=== PATIENT | female | born 1965 | race Caucasian/White ===

== ENCOUNTER 2024-07-10 10:46 | Outpatient (AMB) | payer BC, SELFPAY ==
--- NOTE | 2024-07-10 10:47 | A.OFFVIS_ITS ---
Vital Signs 3 07/10/24 10:49 Height 5 ft 4.96 in Weight 134 lb 8 oz BMI 22.4 BP 142/76 H Blood Pressure Location Rt brachial Position Sitting Pulse 96 Pulse Source Pulse Oximeter Pulse Oximetry (%) 99 Oxygen Delivery Method Room Air Intake Visit Reasons: Bronchiectasis Allergies No Known Allergies Allergy (Verified 07/10/24 10:51) HPI HPI Bronchiectasis: Details: Eusebia is a pleasant 59 year old female, former minimal smoker with less than 5pyh with no significant past medical history. She was referred by PCP for pulmonary evaluation. She reports having COVID last fall and most recently diagnosed on 06/05 with multifocal pneumonia treated with Augmentin x 10 days and azithromycin x 5 days. During this time she denied any symptoms other than hemoptypsis. She noted bright red blood with clots, approximately 2 tsp. After completing antibiotics, her symptoms worsened with fever and fatigue. She also continued with minimal productive cough now intermittently streaked with blood, mid to left sided pleuritic burning with inspiration and wheezing. She was prescribed prednisone with minimal change. She was also sent for chest CT with contrast on 06/29 which was suggestive of MAC vs bronchiolitis. She denies recurrent URI. She reports diagnosis of allergy induced asthma in the past. She reports mild seasonal allergies. She reports father had a pulmonary infection that was difficult to treat, does not know exact diagnosis. [facility] Social History (Updated 07/10/24 @ 10:51 by Seema Guo [facility]) Patient Tobacco Use Status: Former Tobacco user Review of Systems Const Denies chills, Denies excessive sweating, Reports fatigue, Denies fever(s), Denies headache(s) and Denies night sweats Eyes Denies dry eyes, Denies irritation and Denies itchy eyes ENT Reports Normal hearing present, Denies headache(s), Denies nasal congestion, Denies nasal discharge, Denies post nasal drip and Denies sore throat Card Denies chest pain, Denies chest pain at rest, Denies chest pain with activity, Denies claudication, Denies leg edema, Denies dyspnea, Denies dyspnea on exertion, Denies orthopnea and Denies paroxysmal nocturnal dyspnea Resp Details: mid to left sided pleuritic burning with inspiration Denies chest congestion, Denies excessive phlegm production, Denies dyspnea, Denies dyspnea on exertion, Denies stridor and Reports wheezing Musc Denies myalgias Neuro Reports Normal hearing present and Denies headache(s) Endo Denies excessive sweating and Reports fatigue Shawn/Lymph Denies lymphadenopathy Aller/Immun Denies itchy eyes, Denies seasonal rhinorrhea and Reports wheezing Physical Exam Vital Signs: Last Vital Signs Pulse 96 07/10/24 10:49 BP 142/76 H 07/10/24 10:49 Pulse Ox 99 07/10/24 10:49 Oxygen Delivery Method Room Air 07/10/24 10:49 BMI result Body Mass Index 22.4 Const General: cooperative, healthy appearing, comfortable, no acute distress, well developed and alert Orientation/consciousness: patient oriented x3 Limitations: no limitations HEENT Head: Yes normal to inspection, Yes normocephalic and Yes atraumatic Ears: hearing grossly normal bilaterally and external ears normal Eyes General: appearance normal, both eyes and all related structures Eyelids: Yes eyelids normal Sclerae: sclerae normal EOM: EOMs intact bilaterally Neck Neck: Yes normal visual inspection and Yes no lymphadenopathy Lymphatic: no lymphadenopathy noted Chest Chest palpation & inspection: normal inspection of the chest Resp Effort & Inspection: normal respiratory effort, able to speak in complete sentences, no audible wheezes, no cough, no stridor, not tachypneic, no tripod positioning and no use of accessory muscles Auscultation: clear to auscultation bilaterally Cardio Jugular venous distension: no JVD Rate: regular rate Rhythm: regular rhythm Skin Other: warm, dry General skin exam: no rashes or lesions noted Neuro General: patient oriented x3 Cranial nerves: Yes Normal hearing present Cognition (Neuro): normal cognition Gait exam (Neuro): Normal gait present Extrem General: Yes normal to inspection, Yes capillary refill normal, Yes no clubbing, cyanosis or edema and Yes no pedal edema Psych Appearance: grossly normal and well kempt Speech and movement: Normal speech and movement present and Clear speech present Affect: normal affect Attitude: cooperative Thought process: Normal thought process present Thought content: Normal thought content present Insight: Good insight present (Psych) Judgement: Good judgement present (Psych) Results Reviewed Results Reviewed: Assessment & Plan Assessment & Plan (1) Hemoptysis: Code(s): R04.2 - Hemoptysis Category: Medical (2) Bronchiectasis: Code(s): J47.9 - Bronchiectasis, uncomplicated Category: Medical (3) History of recent pneumonia: Code(s): Z87.01 - Personal history of pneumonia (recurrent) Category: Medical Plan Eusebia presents for pulmonary evaluation after recent multifocal pneumonia. Despite antibiotics she continues with intermittent wheezing, productive cough now occasionally blood streaked, and mid to left pleuritic burning sensation. Prior CT suggestive of MAC. Will send for CTA to rule out any vascular malformations contributing to hemoptysis. Once resulted will review and if no abnormalities will likely schedule bronchoscopy, as she is unable to produce a sputum culture to assess for MAC. She is aware if she has greater than 1 tsp of hemoptypsis to seek emergent care. All questions were answered and patient is in agreement of plan. Will follow up to review results or sooner if needed. Orders: Orders 2 CT angio chest PE protocol Today R04.2 - Hemoptysis Creatinine Today Z01.818 - Encounter for other preprocedural examination Blood Urea Nitrogen Today Z01.818 - Encounter for other preprocedural examination Coding Level of Care Code New Pt Level 4 (01934) Diagnoses Hemoptysis R04.2 Bronchiectasis J47.9 History of recent pneumonia Z87.01
[2024-07-10 10:49] VITALS: BP 142/76; PULSE 96; O2SAT 99; BMI 22.4
== END 2024-07-10 11:42 | disposition home or self-care (01) ==
PROVIDERS: PCP Internal Medicine; Referring Provider Internal Medicine; Visit Provider Nurse Practitioner Family
DX: R04.2 Hemoptysis (principal); J47.9 Bronchiectasis, uncomplicated; Z87.01 Personal history of pneumonia (recurrent)
CPT/HCPCS: 99204

== ENCOUNTER → 2024-07-10 10:46 | Outpatient (BNVA) | payer BC, SELFPAY | PROVIDERS: PCP Internal Medicine; Referring Provider Internal Medicine; Visit Provider Nurse Practitioner Family ==

== ENCOUNTER 2024-07-23 13:49 | Outpatient (REF) | payer BC, SELFPAY ==
[2024-07-23 18:09] LABS: Blood Urea Nitrogen 11 mg/dL (9-16); Estimated Glomerular Filt Rate > 60
== END 2024-07-23 13:50 | disposition home or self-care (01) ==
LOC: HO.WFDLDS 13:49
PROVIDERS: Visit Provider Nurse Practitioner Family
DX: Z01.818 Encounter for other preprocedural examination (principal)
CPT/HCPCS: 36415; 82565; 84520

== ENCOUNTER 2024-07-26 14:51 | Outpatient (REF) | payer BC, SELFPAY ==
--- NOTE | ~2024-07-26 | CT_ITS ---
EXAMINATION: CT ANGIOGRAM CHEST CLINICAL INFORMATION: Hemoptysis COMPARISON: None available. TECHNIQUE: Multiple axial images were obtained through the chest after the administration of 65 mL of Omnipaque 350 intravenous contrast. Extensive vascular post-processing including two-dimensional and three-dimensional reformatted images were created and reviewed on an independent workstation. This CT examination was performed using dose optimization techniques as appropriate, variously including the following: *Automated exposure control *Adjustment of mA and/or kV according to patient size (this includes techniques or standardized protocols for targeted exams where dose is matched to indication/reason for exam; i.e. extremities or head) *Use of iterative reconstruction technique DLP: 94 mGy-cm FINDINGS: Technical Quality: There is satisfactory contrast opacification of the pulmonary arterial system. Pulmonary Arteries: The pulmonary arterial system is well opacified and patent. There is no pulmonary arterial filling defect. The main pulmonary artery is normal in caliber. The right ventricle is normal in size and morphology. Other Cardiovascular: The heart is globally normal in size. The thoracic aorta is normal in course and caliber. There is no pericardial effusion or pericardial thickening. Mediastinum/Aarti: There are no pathologically enlarged mediastinal or hilar lymph nodes. Pleura: The pleural surfaces are normal bilaterally. There is no pleural effusion. There is no pneumothorax. Lungs: No pulmonary masses. There are scattered nodules and groundglass attenuation throughout the bilateral upper lobes, right greater than left as well as the superior segment of the right lower lobe. There is consolidation and bronchiectasis in the right middle lobe. Airways: The central airways are patent. The peripheral airways are normal. There is no bronchiectasis. Upper Abdomen: The incompletely imaged upper abdomen is unremarkable. Musculoskeletal: Unremarkable for the patient's age. CT/CT angio chest PE protocol IMPRESSION: 1. No pulmonary embolism. 2. Scattered nodules and groundglass attenuation throughout the bilateral upper lobes, right greater than left as well as the superior segment of the right lower lobe. There is consolidation and bronchiectasis in the right middle lobe. Findings are suggestive of an infectious/inflammatory process. Electronically signed by: Donna Negro MD 07/27/2024 11:31 AM [facility]
[2024-07-26] MEDS: iohexoL 350 MG/ML 100 ML INFUS..BTL 65 ML IV (15:48)
== END 2024-07-26 14:52 | disposition home or self-care (01) ==
LOC: HO.CT 14:51
PROVIDERS: PCP Internal Medicine; Visit Provider Nurse Practitioner Family
DX: R04.2 Hemoptysis (principal)
CPT/HCPCS: 71275; Q9967

== ENCOUNTER 2024-08-16 10:33 | Day surgery (SDC) | payer BC, SELFPAY ==
[2024-08-16 10:51] VITALS: BMI 22.5
[2024-08-16 10:59] VITALS: BP 134/61; PULSE 86; RESP 16; TEMP 36.8; O2SAT 99
[2024-08-16] MEDS: Lactated Ringers 1,000 ML 50 ML IVCONT (11:07)
--- NOTE | 2024-08-16 11:18 | P.HPSUR_ITS ---
Pre-Procedural Eval Section A - 24 Hr Update-Section A only Date of Service: 08/16/24 The patient is an INPATIENT: No Changes since office visit: Yes Patient answered all questions; No Cold of Flu in the past 2 weeks, No New Medical Problems and No Changes in Medication Section B - Complete if H&P > 30 days Chief Complaint: Bronchiectasis, suspicion for MAC Relevant Family History (Specify if Yes): Yes Relevant Social History: None Present Medications: see Short Stay Collaborative assessment Allergies: Allergies Allergy/AdvReac Type Severity Reaction Status Date / Time No Known Allergies Allergy Verified 07/10/24 10:51 Review of Systems Sugical H&P ROS: Negative: Constitution, Cardiovascular, Respiratory, Neurological, Psychiatric, Hem-Onc, Allergic/Immunologic, Gastrointestinal, Genitourinary, Musculoskeletal, Integumentary, Endocrine and Eyes/Ea rs/Nose/Throat Exam Surgical H&P Exam: Normal: HEENT, Normal: Heart, Normal: Lungs, Normal: Extremities, Normal: Abdomen, Normal: Skin and Normal: Neurological Plan Diagnosis/Plan: Unchanged I have reviewed the history and physical and performed a pertinent physical examination on my patient. No changes have occurred unless specified. Time Spent With Patient Time: Total time managing care of this patient today ____ minutes.
--- NOTE | 2024-08-16 12:55 | HO.ANESPROP2 ---
[facility] Active Problems Active Problems: All Active Problems Preprocedural examination (Acute) Hemoptysis (Acute) History of recent pneumonia (Acute) Bronchiectasis (Acute) Past Medical History Medical History Asthma Functional capacity: independent ambulation Patient : No Family History Family history of problems with anesthesia: No Surgical History Surgical History History of colonoscopy History of Problems with Anesthesia: No Social History Social History Patient Tobacco Use Status: Former Tobacco user Use of substances other than those prescribed or required for medical reasons: No Are you DNR?: No Advance Directives: No Advance Directives Information Provided: Yes Recently lost weight without trying: No Nutrition Risks: No Nutritional Risk Meds Allergies Allergy/AdvReac Type Severity Reaction Status Date / Time No Known Allergies Allergy Verified 07/10/24 10:51 Active Medications: Current Medications Lactated Ringer's (Lr) 1,000 mls @ 50 mls/hr IVCONT .Q20H ROSEANN Last Admin: 08/16/24 11:07 Dose: 50 mls/hr Home Medications ?Medication ?Instructions ?Recorded ?Confirmed ?Last Taken ?Type magnesium 250 mg tablet 250 mg PO DAILY 07/10/24 08/16/24 08/15/24 History albuterol sulfate 90 mcg/actuation 1 puff inhalation Q4H PRN wheezing 08/16/24 08/16/24 Unknown History aerosol inhaler Exam Height,Weight and Vital Signs: Height 5 ft 5 in Weight 61.235 kg Last Vital Signs Temp 98.3 F 08/16/24 10:59 Pulse 86 08/16/24 10:59 Resp 16 08/16/24 10:59 BP 134/61 08/16/24 10:59 Pulse Ox 99 08/16/24 10:59 O2 Del Method Room Air 08/16/24 10:59 Airway Mallampati Class: I TM Dist: >3cm Neck ROM: Full Heart: RRR Lungs: CTA Assessment and Plan Assessment Anesthesia Assessment: Anesthesia Plan Discussed and Chart Reviewed Final Anesthetic Review Family History of Problems with Anesthesia: No History of Problems with Anesthesia: No NPO: Yes ASA Class: II Final Preanesthetic Review: Meds/Allgs Chart Reviewed, Consent Obtained/Reviewed and Anes Risks/Benef Reviewed Patient Risk: Low Procedure Risk: Low Anesthetic Plan Anesthetic Plan: GA Disposition: Standard PACU
[2024-08-16 13:55] VITALS: BP 136/65; PULSE 90; RESP 12; TEMP 36.6; O2SAT 98
--- NOTE | 2024-08-16 13:57 | HO.POSTANES ---
Post Anesthesia Evaluation Post Anesthesia Evaluation Date of Service: 08/16/24 Vital Signs: Vital Signs Temp Pulse Resp BP Pulse Ox O2 Del Method 08/16/24 10:59 98.3 F 86 16 134/61 99 Room Air Anesthesia: General Endotracheal-GETA Mental Status: Awake Pain Control: Satisfactory Nausea/Vomiting: None Hydration: Adequate Anesthesia-Related Issues: No Anes. Related Issues
[2024-08-16 14:00] VITALS: BP 129/65; PULSE 96; RESP 14; O2SAT 100
[2024-08-16 14:05] VITALS: BP 118/50; PULSE 94; RESP 14; O2SAT 100
[2024-08-16 14:10] VITALS: BP 104/47; PULSE 90; RESP 16; O2SAT 100
--- NOTE | 2024-08-16 14:24 | PM.OP ---
Brief Operative Note Date of Service: 08/16/24 Pre-op diagnosis: Bronchiectasis Post-op diagnosis: same Procedure: Flexible bronchoscope advanced through the tracheobronchial tree with patient intubated for the procedure. Moderate amount of thick greenish mucus noted in suctioned out with friable bronchial mucosa noted underneath. Right middle lobe bronchoalveolar lavage performed and sent for microbiologic and cytologic testing. Patient tolerated procedure well and was returned to PACU in stable condition. Surgeon: Kennedy Silverman MD Anesthesia: GETA Was an Corporate Director Talent Assessment used for this Procedure?: No Estimated blood loss (mL): 0 Condition: stable Disposition: PACU
[2024-08-16 14:25] VITALS: BP 114/63; PULSE 88; RESP 20; TEMP 36.6; O2SAT 95
== END 2024-08-16 14:43 | disposition home or self-care (01) ==
PROVIDERS: PCP Internal Medicine; Visit Provider Internal Medicine Pulmonary Disease
PROC: 0BJ08ZZ Inspection of Tracheobronchial Tree, Via Natural or Artificial Opening Endoscopic (ICD-10-PCS; CPT 31622; principal; 2024-08-16 13:20)
DX: J47.9 Bronchiectasis, uncomplicated (principal); R04.2 Hemoptysis; R91.1 Solitary pulmonary nodule; J45.909 Unspecified asthma, uncomplicated; Z87.01 Personal history of pneumonia (recurrent); Z79.899 Other long term (current) drug therapy; Z87.891 Personal history of nicotine dependence
CPT/HCPCS: 31624; 87070; 87102; 87116; 87205; 87206; 88112; 88305; 88312; J0171; J1100; J2003; J2250; J2405; J2704; J3010

== ENCOUNTER → 2024-08-16 10:33 | Outpatient (BNV) | payer BC, SELFPAY | PROVIDERS: PCP Internal Medicine; Visit Provider Internal Medicine Pulmonary Disease | DX: J47.9 Bronchiectasis, uncomplicated (principal) | CPT/HCPCS: 31624 ==

== ENCOUNTER → 2024-09-21 13:59 | Outpatient (REF) | payer BC, SELFPAY ==
--- NOTE | 2024-09-21 14:05 | ECG_ITS ---
Test Reason : PREOP Blood Pressure : */* mmHG Vent. Rate : 70 BPM Atrial Rate : 70 BPM P-R Int : 184 ms QRS Dur : 92 ms QT Int : 392 ms P-R-T Axes : 73 38 19 degrees QTcB Int : 423 ms Normal sinus rhythm Normal ECG No previous ECGs available Referred By: Chantelle Rascon Electronically Signed By: GUY MURILLO
== END ==
LOC: HO.CARD 13:59
PROVIDERS: PCP Internal Medicine; Visit Provider Nurse Practitioner Family
DX: Z01.818 Encounter for other preprocedural examination (principal)
CPT/HCPCS: 93005

== ENCOUNTER → 2024-09-21 14:05 | Outpatient (BNV) | payer BC, SELFPAY | PROVIDERS: PCP Internal Medicine; Visit Provider Internal Medicine | DX: Z01.810 Encounter for preprocedural cardiovascular examination (principal) | CPT/HCPCS: 93010 ==

== ENCOUNTER 2024-10-12 13:10 | Outpatient (AMB) | payer BC, SELFPAY ==
[2024-10-12 13:11] VITALS: BP 117/74; PULSE 82; O2SAT 98; BMI 23.5
--- NOTE | 2024-10-12 13:11 | A.OFFVIS_ITS ---
Vital Signs 10/12/24 13:11 Height 5 ft 5 in Weight 141 lb BMI 23.5 BP 117/74 Blood Pressure Location Rt brachial Position Sitting Pulse 82 Pulse Source Doppler Pulse Oximetry (%) 98 Oxygen Delivery Method Room Air Intake Visit Reasons: Bronchiectasis/Bronch Follow Up Allergies No Known Allergies Allergy (Verified 07/10/24 10:51) HPI HPI Bronchiectasis/Bronch Follow Up: Details: 59-year-old lady, former minimal smoker, now followed for small volume hemoptysis secondary to MAC on lavage in July of 2024. CT chest with bronchiectasis in small nodular disease. Per patient's symptoms have been slowly improving over the last 2 months. She denies significant productive cough. [facility] Medical History Asthma Surgical History History of colonoscopy Social History (Reviewed 10/12/24 @ 13:17 by Marian Spaulding [facility]) Patient Tobacco Use Status: Former Tobacco user Review of Systems Const Denies daytime sleepiness, Denies excessive sweating, Denies fatigue, Denies fever(s), Denies lethargy, Denies malaise, Denies night sweats, Denies snoring and Denies weight loss Eyes Denies blurry vision and Denies itchy eyes ENT Denies nasal congestion, Denies post nasal drip, Denies sinus pain, Denies sinus pressure and Denies other ( Thrush) Card Denies chest pain, Denies pedal edema, Denies dyspnea, Denies orthopnea and Denies paroxysmal nocturnal dyspnea Resp Denies cough, Reports hemoptysis (Intermittent small volume improving), Denies excessive phlegm production, Denies dyspnea, Denies snoring and Denies wheezing GI Denies abdominal pain and Denies heartburn Musc Denies myalgias, Denies arthralgias and Denies joint swelling Skin/Breast Denies rash Neuro Denies memory loss and Denies seizure-like activity Psych Denies abnormal sleep pattern, Denies anxiety and Denies memory loss Endo Denies excessive sweating, Denies fatigue and Denies heat intolerance Shawn/Lymph Denies easy bruising Aller/Immun Denies itchy eyes, Denies seasonal rhinorrhea and Denies wheezing Physical Exam Vital Signs: Last Vital Signs Pulse 82 02/21/25 13:11 BP 117/74 10/12/24 13:11 Pulse Ox 98 10/12/24 13:11 Oxygen Delivery Method Room Air 10/12/24 13:11 BMI result Body Mass Index 23.5 Const General: no acute distress and alert Nutritional Appearance: not obese Orientation/consciousness: Other orientation findings ( oriented) HEENT Head: Yes atraumatic Eyes General: appearance normal, both eyes and all related structures Sclerae: sclerae normal EOM: EOMs intact bilaterally Neck Neck: Yes supple Lymphatic: no lymphadenopathy noted Resp Effort & Inspection: normal respiratory effort and no use of accessory muscles Auscultation: clear to auscultation bilaterally Cardio Rate: regular rate Rhythm: regular rhythm Heart sounds: no gallops, no murmurs and no rubs Skin General skin exam: other ( warm) Extrem General: No clubbing, No cyanosis and No edema Assessment & Plan Assessment & Plan (1) Bronchiectasis: Code(s): J47.9 - Bronchiectasis, uncomplicated Category: Medical (2) VASYL (mycobacterium avium-intracellulare): Code(s): A31.0 - Pulmonary mycobacterial infection Category: Medical (3) Hemoptysis: Code(s): R04.2 - Hemoptysis Category: Medical Plan Intermittent small volume hemoptysis slowly improving secondary to underlying bronchiectasis with nodular MAC on lavage in July of 2024. Otherwise asymptomatic. Initiation of treatment discussed with patient in detail and deferred based on symptomatology and imaging surveillance. Will repeat CT chest in December of 2024. Orders: Orders CT chest wo IV con 12/29/24 J47.9 - Bronchiectasis, uncomplicated Coding Level of Care Code Est Pt Level 4 (67444) Diagnoses Bronchiectasis J47.9 VASYL (mycobacterium avium-intracellulare) A31.0 Hemoptysis R04.2
== END 2024-10-12 13:58 | disposition home or self-care (01) ==
PROVIDERS: PCP Internal Medicine; Visit Provider Internal Medicine Pulmonary Disease
DX: J47.9 Bronchiectasis, uncomplicated (principal); A31.0 Pulmonary mycobacterial infection; R04.2 Hemoptysis
CPT/HCPCS: 99214

== ENCOUNTER 2024-12-21 13:02 | Outpatient (REF) | payer BC, SELFPAY | END 2024-12-21 13:03 | disposition home or self-care (01) | LOC: HO.CT 13:02 | PROVIDERS: PCP Internal Medicine; Visit Provider Internal Medicine Pulmonary Disease | DX: J47.9 Bronchiectasis, uncomplicated (principal) | CPT/HCPCS: 71250 ==

== ENCOUNTER → 2024-12-21 13:04 | Outpatient (BNV) | payer BC, SELFPAY | PROVIDERS: PCP Internal Medicine; Visit Provider Radiology Diagnostic Radiology | DX: J47.9 Bronchiectasis, uncomplicated (principal); R91.8 Other nonspecific abnormal finding of lung field | CPT/HCPCS: 71250 ==

== ENCOUNTER 2025-01-09 13:43 | Outpatient (AMB) | payer BC, SELFPAY ==
[2025-01-09 13:49] VITALS: BP 114/74; PULSE 70; O2SAT 98; BMI 23.3
--- NOTE | 2025-01-09 13:49 | A.OFFVIS_ITS ---
Vital Signs 01/09/25 13:49 Height 5 ft 5 in Weight 139 lb 15.896 oz BMI 23.3 BP 114/74 Blood Pressure Location Lt brachial Position Sitting Pulse 70 Pulse Source Pulse Oximeter Pulse Oximetry (%) 98 Oxygen Delivery Method Room Air Intake Visit Reasons: Bronchiectasis Business Support Coordinator Required: No Accompanied by: Self / Same As Patient Allergies No Known Allergies Allergy (Verified 01/09/25 13:51) HPI HPI Bronchiectasis: Details: 59-year-old lady, former minimal smoker, now followed for small volume hemoptysis secondary to MAC on lavage in July of 2024. Follow-up CT chest with essentially stable findings. Per patient she still experiences small amount of hemoptysis approximately once a month. [facility] Medical History Asthma Surgical History History of colonoscopy Social History Patient Tobacco Use Status: Former Tobacco user Review of Systems Const Denies chills, Denies fatigue, Denies fever(s), Denies weight gain and Denies weight loss Eyes Denies blurry vision and Denies itchy eyes ENT Denies dizziness Card Denies chest pain, Denies leg edema, Denies lightheadedness, Denies palpitations, Denies dyspnea on exertion, Denies orthopnea and Denies other Resp Reports cough, Reports hemoptysis, Denies dyspnea on exertion and Denies wheezing GI Denies hematochezia and Denies change in stool character Musc Denies abnormal gait, Denies muscle weakness, Denies numbness, Denies radiating pain into limb and Denies tingling Skin/Breast Denies rash Neuro Denies abnormal gait, Denies dizziness, Denies memory loss, Denies numbness and Denies tingling Psych Denies abnormal sleep pattern, Denies anxiety and Denies memory loss Endo Denies fatigue and Denies palpitations Shawn/Lymph Denies easy bruising Aller/Immun Denies itchy eyes, Denies seasonal rhinorrhea and Denies wheezing Physical Exam Vital Signs: Last Vital Signs Pulse 70 01/09/25 13:49 BP 114/74 01/09/25 13:49 Pulse Ox 98 01/09/25 13:49 Oxygen Delivery Method Room Air 01/09/25 13:49 BMI result Body Mass Index 23.3 Const General: no acute distress and alert Nutritional Appearance: not obese Orientation/consciousness: Other orientation findings ( oriented) HEENT Head: Yes atraumatic Eyes General: appearance normal, both eyes and all related structures Sclerae: sclerae normal EOM: EOMs intact bilaterally Neck Neck: Yes supple Lymphatic: no lymphadenopathy noted Resp Effort & Inspection: normal respiratory effort and no use of accessory muscles Auscultation: clear to auscultation bilaterally Cardio Rate: regular rate Rhythm: regular rhythm Heart sounds: no gallops, no murmurs and no rubs Skin General skin exam: other ( warm) Extrem General: No clubbing, No cyanosis and No edema Assessment & Plan Assessment & Plan (1) Bronchiectasis: Code(s): J47.9 - Bronchiectasis, uncomplicated Category: Medical (2) Hemoptysis: Code(s): R04.2 - Hemoptysis Category: Medical (3) VASYL (mycobacterium avium-intracellulare): Code(s): A31.0 - Pulmonary mycobacterial infection Category: Medical Plan Bronchiectasis with MAC in small volume hemoptysis with another episode over the last months. Patient states that her symptoms otherwise minimal and at this time is not interested in starting treatment. Will continue to monitor and repeat CT chest in 6 months. Orders: Orders CT chest wo IV con 06/11/25 J47.9 - Bronchiectasis, uncomplicated Coding Level of Care Code Est Pt Level 4 (18624) Diagnoses Bronchiectasis J47.9 Hemoptysis R04.2 VASYL (mycobacterium avium-intracellulare) A31.0
== END 2025-01-09 14:16 | disposition home or self-care (01) ==
LOC: HO.HPS 13:48
PROVIDERS: PCP Internal Medicine; Visit Provider Internal Medicine Pulmonary Disease
DX: J47.9 Bronchiectasis, uncomplicated (principal); R04.2 Hemoptysis; A31.0 Pulmonary mycobacterial infection
CPT/HCPCS: 99214

== ENCOUNTER → 2025-01-09 13:43 | Outpatient (BNVA) | payer BC, SELFPAY | PROVIDERS: PCP Internal Medicine; Visit Provider Internal Medicine Pulmonary Disease ==

== ENCOUNTER 2025-07-06 09:50 | Outpatient (REF) | payer BC, SELFPAY ==
--- NOTE | ~2025-07-06 | CT_ITS ---
CLINICAL HISTORY: J47.9 - Bronchiectasis, uncomplicated CT chest without contrast Comparison: CT/SR - CT CHEST WO IV CON - 12/21/24 13:17 EDT Findings: The heart is normal size. The visualized thyroid and mediastinum are unremarkable. There is mucous plugging and tree-in-bud opacities scattered bilaterally in some areas slightly more prominent than previously noted and other areas diminished. There is bronchiectasis and peribronchial consolidation in the right middle lobe similar to the prior exam. Small area of consolidation is now seen in the left anterior lung base. The visualized upper abdomen is unremarkable. No acute fractures. Calcified granulomata are noted. IMPRESSION: 1. There is mucous plugging and tree-in-bud opacities scattered bilaterally in some areas slightly more prominent than previously noted and other areas diminished. The findings are consistent with an atypical infection. 2. There is bronchiectasis and peribronchial consolidation in the right middle lobe similar to the prior exam. 3. Small area of consolidation is now seen in the left anterior lung base. This document has been electronically signed by: Augustin Aguila MD on 07/08/2025 11:21:53
== END 2025-07-06 09:51 | disposition home or self-care (01) ==
LOC: HO.CT 09:50
PROVIDERS: Visit Provider Internal Medicine Pulmonary Disease
DX: J47.9 Bronchiectasis, uncomplicated (principal)
CPT/HCPCS: 71250

== ENCOUNTER → 2025-07-06 09:54 | Outpatient (BNV) | payer BC, SELFPAY | PROVIDERS: Visit Provider Radiology Diagnostic Radiology | DX: J47.9 Bronchiectasis, uncomplicated (principal); R91.8 Other nonspecific abnormal finding of lung field | CPT/HCPCS: 71250 ==

== ENCOUNTER 2025-07-12 13:21 | Outpatient (AMB) | payer BC, SELFPAY ==
[2025-07-12 13:26] VITALS: BP 132/78; PULSE 86; O2SAT 99; BMI 22.6
--- NOTE | 2025-07-12 13:26 | A.OFFVIS_ITS ---
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 Second follow-up CT chest June of 2025 with essentially stable findings. Per patient she had another episode of small volume hemoptysis a paroxysmally since month after her prior one with no further recurrent. She does complain of having more cough that is intermittently productive. COUNT INCLUDES [facility] Medical History Asthma Surgical History History of colonoscopy Social History Patient Tobacco Use Status: Former Tobacco user Review of Systems Card Denies dyspnea and Denies dyspnea on exertion Resp Reports cough, Denies dyspnea, Denies dyspnea on exertion and Denies wheezing Aller/Immun Denies wheezing Physical Exam Vital Signs: Last Vital Signs Pulse 86 07/12/25 13:26 BP 132/78 07/12/25 13:26 Pulse Ox 99 07/12/25 13:26 Oxygen Delivery Method Room Air 07/12/25 13:26 BMI result Body Mass Index 22.6 Const General: no acute distress and alert Nutritional Appearance: not obese Orientation/consciousness: Other orientation findings ( oriented) HEENT Head: Yes atraumatic Eyes General: appearance normal, both eyes and all related structures Sclerae: sclerae normal EOM: EOMs intact bilaterally Neck Neck: Yes supple Lymphatic: no lymphadenopathy noted Resp Effort & Inspection: normal respiratory effort and no use of accessory muscles Auscultation: clear to auscultation bilaterally Cardio Rate: regular rate Rhythm: regular rhythm Heart sounds: no gallops, no murmurs and no rubs Skin General skin exam: other ( warm) Extrem General: No clubbing, No cyanosis and No edema Assessment & Plan Assessment & Plan (1) Bronchiectasis: Code(s): J47.9 - Bronchiectasis, uncomplicated Category: Medical (2) VASYL (mycobacterium avium-intracellulare): Code(s): A31.0 - Pulmonary mycobacterial infection Category: Medical Plan Bronchiectasis with VASYL with essentially stable CAT scan, and only minimal worsening symptoms. Will continue to monitor clinically. Coding Level of Care Code Est Pt Level 4 (35853) Diagnoses Bronchiectasis J47.9 VASYL (mycobacterium avium-intracellulare) A31.0
== END 2025-07-12 13:52 | disposition home or self-care (01) ==
LOC: HO.HPS 13:22
PROVIDERS: PCP Internal Medicine; Visit Provider Internal Medicine Pulmonary Disease
DX: J47.9 Bronchiectasis, uncomplicated (principal); A31.0 Pulmonary mycobacterial infection
CPT/HCPCS: 99214